=== PATIENT | female | born 1990 | race Caucasian/White ===

== ENCOUNTER 2018-01-20 14:33 | Inpatient (IN) | payer MEDICAID ==
[2018-01-20 14:46] VITALS: BMI 29.6
[2018-01-20] MEDS: Lactated Ringer's 1,000 ML IV SCH ×2 (15:00→23:00)
[2018-01-20 15:19] LABS: BASO # 0.1 K/uL (0.0-0.2); BASO % 0.8 % (0.0-2.0); EOS # 0.1 K/uL (0.0-0.7); EOS % 0.5 % (0.0-4.0); HEMOGLOBIN 12.4 g/dL (11.0-16.0); LYMPH % 18.6 % (20.0-40.0); MEAN CELL VOLUME 87.6 fL (81.0-99.0); MEAN CORPUSCULAR HGB CONC 34.3 g/dL (33.0-37.0); MEAN PLATELET VOLUME 9.4 fL (7.2-11.7); MONO # 0.5 K/uL (0.0-0.8); MONO % 4.5 % (0.0-10.0); NEUT # 8.1 K/uL (1.8-7.0); NEUT % 75.6 % (50.0-75.0); NRBC % 0.1 % (0.0-2.0); RBC 4.14 Mil/uL (3.80-5.20); RED CELL DISTRIBUTION WIDTH 13.7 % (11.5-14.5); WHITE BLOOD COUNT 10.7 K/uL (4.8-10.8)
[2018-01-20 15:30] LABS: ALB/GLOB RATIO 1.1 (1.0-2.1); ALBUMIN 3.9 g/dL (3.5-5.0); ALT/SGPT 20 U/L (9-52); AST/SGOT 21 U/L (14-36); BLOOD UREA NITROGEN 5 mg/dL (7-17); CALCIUM 9.7 mg/dl (8.6-10.4); GFR NON-AFRICAN AMERICAN > 60
[2018-01-20 15:34] LABS: SQUAMOUS EPITHIAL 1 /hpf (0-5); URINE BACTERIA RARE (<OCC); URINE BILIRUBIN NEGATIVE (NEGATIVE); URINE CLARITY Clear (Clear); URINE COLOR Straw (YELLOW); URINE GLUCOSE (UA) NORMAL (Normal); URINE LEUKOCYTE ESTERASE NEG Leu/uL (Negative); URINE PROTEIN NEGATIVE (NEGATIVE); URINE UROBILINOGEN NORMAL mg/dL (0.2-1.0)
[2018-01-20 15:50] LABS: URINE BLOOD 2+ (NEGATIVE)
[2018-01-20 15:59] LABS: HEPATITIS B SURFACE AG Negative (NEGATIVE)
--- NOTE | 2018-01-20 18:05 | OBADHP ---
Datetime: 01/20/2018 18:03 FHR - Baseline A Provider: 140 Contraction Comments Provider: occ NICHD Variability Prov Fetus A: Moderate 6-25bpm NICHD Accel Fetus A IP Provider: 15X15 FHR Category Provider Fetus A: Category I Dilatation, Provider: ft Effacement, Provider: 50 Station, Provider: -3 Datetime: 01/20/2018 14:58 Admit Comment, IP Provider: CC: Leakage of fluid Patient is 27 year old at 38.4 weeks with ELPIDIO (01/30/18) by US and LMP (04/29/17), who presen ts to BESS with complaints of leakage of fluid that was noted at 11:30am and another round of gush of fluid at 12:30am. Patient denies any contractions, vaginal bleeding, abnormal vaginal discharge or r ecent sexual activity and admits to movement. 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 Admit to labor and delivery 2. CEFM and TOCO 3. Speculum exam: Pooling of fluid and nitrazine test positive 4. Admission labs; see orders 5. SVE as indicated 6. LR @ 125mls/hr 7. Plans for cervidil as initial SVE noted for fingertip, 30% and -2 8. Normal vaginal delivery expected All plans and management discussed with Dr. Sanchez Extremities - PN: Normal Abdomen - PN: Normal Lungs - PN: Normal Heart - PN: Normal HEENT - PN: Normal General - PN: Normal Amniotic Fluid Color, Provider: Clear Comments, ACOG Physical Exam: GEN: NAD Cardio: RRR, + S1, S2 PULM: CTA bilaterally Abdo: Soft, gravid Ext: No edema, no cyanosis and no clubbing SVE: Finger tip/ 30%/-2 FHR: 150, + accelerations TOCO: None Gestation - Est Wks by US: 38.4 Pool Provider: Positive Nitrazine Provider: Positive IP Hx Assessment: The History has been Reviewed and is Current Vital Signs Provider: Reviewed IP Chief Complaint: Suspected ruptured membranes EGA AdmitDate IP: 38.4 IP Adm Impression: Term, intrauterine ; Ruptured Membranes IP Admit Plan: Admit to unit; Initiate labor induction protocol
--- NOTE | 2018-01-20 18:06 | OBPN ---
Datetime: 01/20/2018 18:03 IP Procedures: Sterile Vag Exam IP Progress Plan: Cervical Ripening Contraction Comments Provider: occ FHR - Baseline A Provider: 140 IP Progress Note Comment: pt was examined at bed side ve ft/50/-3 cervidil placed anticipate NICHD Accel Fetus A IP Provider: 15X15 FHR Category Provider Fetus A: Category I NICHD Variability Prov Fetus A: Moderate 6-25bpm Dilatation, Provider: ft Effacement, Provider: 50 Station, Provider: -3 Datetime: 01/20/2018 14:58 Pool Provider: Positive Nitrazine Provider: Positive Amniotic Fluid Color, Provider: Clear Gestation - Est Wks by US: 38.4 Vital Signs Provider: Reviewed
[2018-01-20] MEDS ORDERED: Nalbuphine HCL 10 mg/ml Ampule IVP PRN (20:33)
[2018-01-20] MEDS ORDERED: Nalbuphine HCL 10 mg/ml Ampule ONE (23:19)
[2018-01-21] MEDS ORDERED: Bupivacaine HCl/FentaNYL Cit 100 ML EPI ONE (05:38)
[2018-01-21] MEDS ORDERED: Oxytocin 30 UNIT 30 UNITS/500 ML BAG IV SCH (07:00)
[2018-01-21] MEDS ORDERED: Oxytocin 30 UNIT 30 UNITS/500 ML BAG IV ONE ×3 (07:37→16:12)
[2018-01-21] MEDS: ceFAZolin IV 2 gm in Dextrose 2 GM/50 ML BAG IVPB SCH ×2 (08:26→17:21)
--- NOTE | 2018-01-21 08:29 | OBPN ---
Datetime: 01/21/2018 08:20 IP Progress Impression: Normal progression of labor; Reassuring heart rate; Reactive non-stres s test; Rupture of membranes IP Informed Consent Obtain: Vaginal Delivery IP Procedures: Sterile Vag Exam; Epidural Placement IP Progress Plan: Continue present management; Induction; Antibiotic therapy; Anticipate Vaginal Del nirmal Membranes, Provider: Bulging Amniotic Fluid Color, Provider: Clear Contraction Comments Provider: 4-5 mins FHR - Baseline A Provider: 140 Gestation - Est Wks by US: 38.5 Presentation-Admit: Vertex IP Progress Note Comment: Pt seen and examined Epidural placed earlier and working well Tracing ressuring On Pitocin at 2 Mu/min and will increase per protocol Progressing well in labor VSS, Afebrile Prolonged ROM, > 18 hrs. Strted on Prophylactic Antibiotics, Ancef 2 grams Q 8 hrs Anticipate a vaginal delivery Vital Signs Provider: Reviewed; Within Normal Limits NICHD Accel Fetus A IP Provider: 10X10 NICHD Variability Prov Fetus A: Moderate 6-25bpm Dilatation, Provider: 5-6 Effacement, Provider: 100 Station, Provider: 0 NICHD Decel Fetus A IP Provider: None
[2018-01-21] MEDS ORDERED: Dextrose 5%/Lactated Ringer's 1,000 ML IV SCH (11:15)
--- NOTE | 2018-01-21 14:01 | OBPN ---
Datetime: 01/21/2018 13:50 IP Progress Impression: Normal progression of labor; Reassuring heart rate IP Informed Consent Obtain: Vaginal Delivery IP Procedures: Sterile Vag Exam IP Progress Plan: Continue present management; Augmentation; Anticipate Vaginal Delivery Membranes, Provider: Ruptured Contraction Comments Provider: 2-3 mins FHR - Baseline A Provider: 160 Gestation - Est Wks by US: 38.5 Presentation-Admit: Vertex IP Progress Note Comment: Pt seen and examined SVE Complete, 100%, 0 to +1 station with a caput formation Pt not very cooperative when ask to push despite multiple efforts to encourage her Pitocin at 16 mu/min Afebrile despite Prolonged ROM and on Prophylactic Antibiotics Hope for a vaginal delivery NICHD Accel Fetus A IP Provider: 10X10 FHR Category Provider Fetus A: Category I NICHD Variability Prov Fetus A: Moderate 6-25bpm Dilatation, Provider: 10 Effacement, Provider: 100 Station, Provider: 0-+1 NICHD Decel Fetus A IP Provider: None
[2018-01-21] MEDS ORDERED: Oxytocin 10 Units/ml Inj ONE ×2 (15:59→16:13)
[2018-01-21] MEDS ORDERED: Benzocaine/Menthol 20%-0.5% Topical Spray (60 ml) TOP PRN (16:54)
[2018-01-21] MEDS ORDERED: Oxycodone/Acetaminophen 5/325 mg Tab PO PRN ×2 (16:54→17:10)
--- NOTE | 2018-01-21 17:37 | OBDS ---
[facility]IV[facility]ERSONNEL Delivery Doctor: Dr Seun Nicole Nurse: Lina Richardson OBT Integrated Circuit Fabricator: Hermila Farmer RN Anesthesiologist: Dagoberto Hair MD Front Desk Associate: Dr Romero Resident: Dr Adrianne Blackmon MATERNAL INFORMATION Delivery Anesthesia: Epidural Estimated Blood Loss (ml): 500 Placenta Cultured: Yes Provider Comments: of a vible female from NATHALIA position and over a Midline episiotomy. Ap gars 9 and 9 at 1 and 5 minutes repectively. BW 6lbs 13 oz. EBL 500 mls and controlled with Pitocin IV and IM and one dose of Methergine IM. Extensive tears of vaginal hall and sulcus were repaired and pt tolerated the procedure well Pt and both tolerated the procedure well and remained in LDR in S_S condition. LABOR SUMMARY EDC: 01/30/2018 00:00 No. Babies in Womb: 1 Labor Anesthesia: Epidural LABOR INFORMATION Reason for Induction: Other Reason for Induction Other: SROM Onset of Labor: 01/21/2018 07:52 Complete Dilatation: 01/21/2018 13:16 Cervical Ripening Agents: Cervidil Oxytocin: Augmentation Group B Beta Strep: Negative Antibiotics # of Doses: 1 Antibiotics Time of Last Dose: 825 Steroids Given: None Reason Steroids Not Administered: Not Applicable MEMBRANES Membranes Rupture Method: Spontaneous Rupture of Membranes: 01/20/2018 11:30 Length of Rupture (hrs): 28.25 Amniotic Fluid Color: Clear Amniotic Fluid Amount: Moderate Amniotic Fluid Odor: None STAGES OF LABOR Stage 1 hrs: 5 Stage 1 min: 24 Stage 2 hrs: 2 Stage 2 min: 29 Stage 3 hrs: 0 Stage 3 min: 7 Total Time in Labor hrs: 8 Total Time in Labor min: 0 VAGINAL DELIVERY Episiotomy: Median Laceration Extension: Fourth Degree Laceration Repair Note: 2-0 Chromic and 2-0 Vicryl sutures utilized to repair 4th degree tear and mu ltiple vaginal and perineal tears Sponge Count Correct: Yes Sharps Count Correct: Yes BABY A INFORMATION Infant Delivery Date/Time: 01/21/2018 15:45 Method of Delivery: Vaginal Born in Route : No : N/A Forceps: N/A Vacuum Extraction: N/A Shoulder Dystocia : No SHOULDER DYSTOCIA BABY A Delivery Date/Time: 01/21/2018 15:45 PRESENTATION/POSITION BABY A Presentation: Cephalic Cephalic Presentation: Vertex Vertex Position: Right Occipital Anterior Breech Presentation: N/A PLACENTA INFORMATION BABY A Placenta Delivery Time : 01/21/2018 15:52 Placenta Method of Delivery: Expressed Placenta Status: Delivered SCORES BABY A Heart Rate 1 min: >100 bpm Resp Effort 1 min: Good Cry Reflex Irritability 1 min: Cough or Sneeze or Pulls Away Muscle Tone 1 min: Active Motion Color 1 min: Body Desloge, Extremities Blue Resuscitation Effort 1 min: Tactile Stimulation SCORE 1 MIN: 9 Heart Rate 5 min: >100 bpm Resp Effort 5 min: Good Cry Reflex Irritability 5 min: Cough or Sneeze or Pulls Away Muscle Tone 5 min: Active Motion Color 5 min: Body Desloge, Extremities Blue Resuscitation Effort 5 min: N/A SCORE 5 MIN: 9 INFORMATION BABY A Gestational Age at Delivery: 38.5 Gestational Status: Term Outcome : Liveborn Condition : Stable Sex: Female IDENTIFICATION/MEDS BABY A ID Band Number: [id number] ID Band Location: Left Leg; Left Arm Sensor Applied: Yes Sensor Number: [id number] Sensor Location : Cord Clamp Vitamin K Given : Aquamephyton 1 mg IM Erythromycin Given: Given Both Eyes WEIGHT/LENGTH BABY A Birthweight (gms): 3085 Weight (lb): 6 Infant Weight (oz): 13 Length Inches: 19.00 Infant Length cms: 48.3 CORD INFORMATION BABY A No. Cord Vessels: 3 Nuchal Cord : N/A Cord pH Baby Arterial: 7. Cord pH Baby Venous: 7. Cord Blood Taken: Yes Infant Suction: Mouth; Nose ASSESSMENT BABY A Complications: None Physical Findings at Delivery: Caput Succedaneum Respirations: Appears Normal Returns Processor/ALS Called : No Infant Care By: Katherine nance RN Transferred To: Remains with Mother
[2018-01-21] MEDS ORDERED: Oxytocin 10 Units/ml Inj IM ONE (18:15)
[2018-01-22 07:08] LABS: BASO % 0.2 % (0.0-2.0); EOS # 0.1 K/uL (0.0-0.7); EOS % 0.3 % (0.0-4.0); HEMOGLOBIN 7.9 g/dL (11.0-16.0); LYMPH # 2.5 K/uL (1.0-4.3); LYMPH % 15.4 % (20.0-40.0); MEAN CELL VOLUME 87.8 fL (81.0-99.0); MEAN CORPUSCULAR HEMOGLOBIN 30.1 pg (27.0-31.0); MEAN CORPUSCULAR HGB CONC 34.3 g/dL (33.0-37.0); MONO # 0.9 K/uL (0.0-0.8); MONO % 5.6 % (0.0-10.0); NEUT # 12.5 K/uL (1.8-7.0); NEUT % 78.5 % (50.0-75.0); NRBC % 0.1 % (0.0-2.0); RBC 2.62 Mil/uL (3.80-5.20); RED CELL DISTRIBUTION WIDTH 13.2 % (11.5-14.5); WHITE BLOOD COUNT 15.9 K/uL (4.8-10.8)
--- NOTE | 2018-01-23 09:05 | OBDCSUM ---
Datetime: 01/23/2018 09:01 Disch Instr Activity: Normal activity Disch Instr Diet: Regular Discharge Instructions, Provider: Routine instructions given Discharge Diagnosis, Provider: Term Delivered Discharge Time: 01/23/2018 09:01 Contraception discussed, Prov: No Discharge Comment, Provider: DOING WELL NO COMPLAINTS s/p PPD #2 PLAN: BREAST FEEDING. AMBULATING TOLERATING PO DIET D/C HOME.
[2018-01-23 10:20] LABS: BASO % 0.3 % (0.0-2.0); EOS # 0.1 K/uL (0.0-0.7); EOS % 0.9 % (0.0-4.0); HEMOGLOBIN 8.6 g/dL (11.0-16.0); LYMPH # 1.9 K/uL (1.0-4.3); MEAN CELL VOLUME 88.7 fL (81.0-99.0); MEAN CORPUSCULAR HEMOGLOBIN 29.8 pg (27.0-31.0); MEAN CORPUSCULAR HGB CONC 33.6 g/dL (33.0-37.0); MEAN PLATELET VOLUME 8.8 fL (7.2-11.7); MONO # 0.5 K/uL (0.0-0.8); MONO % 4.2 % (0.0-10.0); NEUT # 8.8 K/uL (1.8-7.0); NEUT % 77.6 % (50.0-75.0); RBC 2.88 Mil/uL (3.80-5.20); RED CELL DISTRIBUTION WIDTH 13.7 % (11.5-14.5); WHITE BLOOD COUNT 11.3 K/uL (4.8-10.8)
[2018-01-23] MEDS ORDERED: Influenza Vaccine 60 MCG/0.5 ML SYR (3 yr & up) IM ONE (12:19)
[2018-01-23 19:42] VITALS: BP 113/77; PULSE 89; RESP 20; TEMP 98.5; O2SAT 98
== END 2018-01-23 13:00 | disposition home or self-care (01) | DRG 807 ==
LOC: C.EROB 14:33 → C.4D 14:47 → C.4M 01-21 19:55
PROVIDERS: ADMIT Obstetrics & Gynecology; ATTEND Obstetrics & Gynecology
PROC: 10E0XZZ Delivery of Products of Conception, External Approach (ICD-10-PCS; principal; 2018-01-21)
PROC: 0KQM0ZZ Repair Perineum Muscle, Open Approach (ICD-10-PCS; 2018-01-21)
PROC: 3E0P7VZ Introduction of Hormone into Female Reproductive, Via Natural or Artificial Opening (ICD-10-PCS; 2018-01-21)
DX: O71.82 Other specified trauma to perineum and vulva (principal); Z37.0 Single live birth; Z3A.38 38 weeks gestation of pregnancy